=== PATIENT | male | born 1985 | race Caucasian/White ===

== ENCOUNTER 2017-11-06 17:23 | Emergency (ER) | payer BC ==
[2017-11-06 17:24] VITALS: BP 154/89; PULSE 90; RESP 12; TEMP 98.2; O2SAT 98
--- NOTE | 2017-11-06 17:53 | RADRPT ---
EXAM DATE/TIME: 11/06/2017 17:43 [place] COMPARISON: No previous studies available for comparison. INDICATIONS : Single sharp chest pain extending down left arm. MEDICAL HISTORY : Spontaneous pneumothorax, right. Anxiety. SURGICAL HISTORY : None. ENCOUNTER: Initial ACUITY: 1 day PAIN SCORE: 7/10 LOCATION: Left chest FINDINGS: PA and lateral views of the chest demonstrate the lungs to be symmetrically aerated without evidence of mass, infiltrate or effusion. The cardiomediastinal contours are unremarkable. Osseous structure s are intact. CONCLUSION: No acute cardiopulmonary disease. No pneumothorax seen. Juan Luis Moulton MD on November 06, 2017 at 17:51 Board Certified Radiologist. This report was verified electronically.
[2017-11-06 18:29] LABS: BASOPHIL % 0.4 % (0.0-2.0); EOSINOPHIL # 0.3 TH/MM3 (0-0.4); EOSINOPHIL % 3.1 % (0.0-4.0); HEMATOCRIT 39.9 % (39.0-51.0); HEMOGLOBIN 14.8 GM/DL (13.0-17.0); LYMPH % 28.8 % (9.0-44.0); LYMPHOCYTE # 2.9 TH/MM3 (1.0-4.8); MEAN CELL VOLUME 93.4 FL (80.0-100.0); MEAN CORPUSCULAR HEMOGLOBIN 34.7 PG (27.0-34.0); MEAN PLATELET VOLUME 7.4 FL (7.0-11.0); MONO % 8.2 % (0.0-8.0); MONOCYTE # 0.8 TH/MM3 (0-0.9); NEUT % 59.5 % (16.0-70.0); PLATELET COUNT 282 TH/MM3 (150-450); RED BLOOD COUNT 4.27 MIL/MM3 (4.50-5.90); RED CELL DISTRIBUTION WIDTH 12.2 % (11.6-17.2); WHITE BLOOD COUNT 10.2 TH/MM3 (4.0-11.0)
[2017-11-06 18:35] LABS: MEAN CORPUSCULAR HGB CONC 37.1 % (32.0-36.0)
[2017-11-06 18:54] LABS: BICARBONATE 28.9 MEQ/L (21.0-32.0); BLOOD UREA NITROGEN 14 MG/DL (7-18); CALCIUM 9.4 MG/DL (8.5-10.1); CHLORIDE 104 MEQ/L (98-107); CREATININE 0.88 MG/DL (0.60-1.30); GLOMERULAR FILTRATION RATE 102 ML/MIN (>89); GLUCOSE,RANDOM 86 MG/DL (74-106); MAGNESIUM 2.4 MG/DL (1.5-2.5); PROTHROMBIN TIME - PATIENT 10.4 SEC (9.8-11.6); SODIUM (NA) 140 MEQ/L (136-145)
[2017-11-06 18:58] LABS: TROPONIN I LESS THAN 0.02 NG/ML (0.02-0.05)
--- NOTE | 2017-11-06 19:04 | PD ---
HPI Chief Complaint: Chest Pain Time Seen by Provider: 18:52 Travel History International Travel<30 days: No Contact w/Intl Traveler<30days: No Traveled to known affect area: No History of Present Illness HPI 32-year-old male complains of chest pain. Patient states that he was at work this morning when he started having left-sided chest pain. Patient stated the pain patient had some achiness on left upper back around the scapular area for a short period of time and that resolved completely also. Patient denies any coughing congestion fever chills. Patient denies any injury to the left-sided chest wall. Patient had a history of CAD. Patient denies history hypertension , diabetes, hyperlipidemia. Patient is a non-smoker. Patient has remote family history of heart disease. Patient denies any chest pain now. PFSH Past Surgical History Other Surgery: Yes (spontaneous lung collapsed 2011) Social History Alcohol Use: Yes (socially) Tobacco Use: Yes (occassionally) Allergies-Medications (Allergen,Severity, Reaction): Coded Allergies: No Known Allergies (Unverified , 08/22/15) Reported Meds & Prescriptions Reported Meds & Active Scripts Active No Active Prescriptions or Reported Medications Review of Systems General / Constitutional: No: Fever Eyes: No: Visual changes HENT: No: Headaches Cardiovascular: Positive: Chest Pain or Discomfort Respiratory: No: Shortness of Breath Gastrointestinal: No: Abdominal Pain Genitourinary: No: Dysuria Musculoskeletal: No: Pain Skin: No Rash Neurologic: No: Weakness Psychiatric: No: Depression Endocrine: No: Polydipsia Hematologic/Lymphatic: No: Easy Bruising Physical Exam Narrative GENERAL: Well-nourished, well-developed patient. SKIN: Focused skin assessment warm/dry. HEAD: Normocephalic. EYES: No scleral icterus. No injection or drainage. NECK: Supple, trachea midline. No JVD or lymphadenopathy. CARDIOVASCULAR: Regular rate and rhythm without murmurs, gallops, or rubs. RESPIRATORY: Breath sounds equal bilaterally. No accessory muscle use. GASTROINTESTINAL: Abdomen soft, non-tender, nondistended. MUSCULOSKELETAL: No cyanosis, or edema. BACK: Nontender without obvious deformity. No CVA tenderness. Neurologic exam normal. Data Data Last Documented VS Vital Signs Date Time Temp Pulse Resp B/P (MAP) Pulse Ox O2 Delivery O2 Flow Rate FiO2 11/06/17 17:24 98.2 90 12 154/89 (110) 98 Orders Orders Electrocardiogram (11/06/17 17:35) Basic Metabolic Panel (Bmp) (11/06/17 17:35) Ckmb (Isoenzyme) Profile (11/06/17 17:35) Complete Blood Count With Diff (11/06/17 17:35) Magnesium (Mg) (11/06/17 17:35) Prothrombin Time / Inr (Pt) (11/06/17 17:35) Act Partial Throm Time (Ptt) (11/06/17 17:35) Troponin I (11/06/17 17:35) Chest, Pa & Lat (11/06/17 17:35) Labs Laboratory Tests Test 11/06/17 17:58 White Blood Count 10.2 TH/MM3 Red Blood Count 4.27 MIL/MM3 Hemoglobin 14.8 GM/DL Hematocrit 39.9 % Mean Corpuscular Volume 93.4 FL Mean Corpuscular Hemoglobin 34.7 PG Mean Corpuscular Hemoglobin Concent 37.1 % Red Cell Distribution Width 12.2 % Platelet Count 282 TH/MM3 Mean Platelet Volume 7.4 FL Neutrophils (%) (Auto) 59.5 % Lymphocytes (%) (Auto) 28.8 % Monocytes (%) (Auto) 8.2 % Eosinophils (%) (Auto) 3.1 % Basophils (%) (Auto) 0.4 % Neutrophils # (Auto) 6.0 TH/MM3 Lymphocytes # (Auto) 2.9 TH/MM3 Monocytes # (Auto) 0.8 TH/MM3 Eosinophils # (Auto) 0.3 TH/MM3 Basophils # (Auto) 0.0 TH/MM3 CBC Comment AUTO DIFF Prothrombin Time 10.4 SEC Prothromb Time International Ratio 1.0 RATIO Activated Partial Thromboplast Time 28.6 SEC Blood Urea Nitrogen 14 MG/DL Creatinine 0.88 MG/DL Random Glucose 86 MG/DL Calcium Level 9.4 MG/DL Magnesium Level 2.4 MG/DL Sodium Level 140 MEQ/L Potassium Level 3.7 MEQ/L Chloride Level 104 MEQ/L Carbon Dioxide Level 28.9 MEQ/L Anion Gap 7 MEQ/L Estimat Glomerular Filtration Rate 102 ML/MIN MDM Medical Decision Making Medical Screen Exam Complete: Yes Emergency Medical Condition: Yes Interpretation(s) EKG shows sinus rhythm nonspecific ST-T wave change. Last Impressions Chest X-Ray 11/06/17 3160 Signed Impressions: Service Date/Time: Monday, November 06, 2017 17:43 - CONCLUSION: No acute cardiopulmonary disease. No pneumothorax seen. Juan Luis Moulton MD 1902 p.m. CBC within normal limits. Cardiac enzymes within normal limits. Differential Diagnosis Differential diagnosis including musculoskeletal, angina, PA, PE, pneumothorax. Narrative Course 32-year-old male with chest pain. Diagnosis Primary Impression: Atypical chest pain Patient Instructions: General Instructions Additional Instructions: Follow-up with local physician. Return immediately if increasing chest pain shortness of breath. Med/Other Pt SpecificInfo: No Meds Exist/No RX given Scripts No Active Prescriptions or Reported Meds Disposition: 01 DISCHARGE HOME Condition: Stable Romulo Fuentes MD Nov 06, 2017 19:04
[2017-11-06 19:17] VITALS: BP 129/81
--- NOTE | 2017-11-07 18:21 | EKG ---
Date Performed: 11/06/2017 Time Performed: 17:48:24 PTAGE: 32 years EKG: Sinus rhythm NORMAL ECG NO PREVIOUS TRACING DOCTOR: Chrystal Solomon Interpretating Date/Time 11/07/2017 18:18:31
== END 2017-11-06 19:32 | disposition home or self-care (01) ==
LOC: NEPD 17:23
DX: R07.89 Other chest pain (principal); R07.9 Chest pain, unspecified; I25.10 Atherosclerotic heart disease of native coronary artery without angina pectoris; Z72.0 Tobacco use
CPT/HCPCS: 71046; 80048; 82550; 82552; 83735; 84484; 85025; 85610; 85730; 93005; 99285